=== PATIENT | male | born 1950 | race Caucasian/White ===

== ENCOUNTER → 2024-07-05 08:31 | Outpatient (REF) | payer MEDICARE, OTHER, SELFPAY | LOC: PAVMRI 08:31 | PROVIDERS: ATTENDING PHYSICIAN Internal Medicine Cardiovascular Disease; FAMILY PHYSICIAN Internal Medicine | DX: R94.31 Abnormal electrocardiogram [ECG] [EKG] (principal); R93.1 Abnormal findings on diagnostic imaging of heart and coronary circulation; I77.810 Thoracic aortic ectasia | CPT/HCPCS: 75561; 75565; A9585 ==

== ENCOUNTER → 2024-11-19 07:17 | Outpatient (REF) | payer MEDICARE, OTHER, SELFPAY | LOC: RAD 07:17 | PROVIDERS: ATTENDING PHYSICIAN Internal Medicine | DX: R10.11 Right upper quadrant pain (principal) | CPT/HCPCS: 76700 ==